=== PATIENT | male | born 1985 | race Two or more races ===

== ENCOUNTER 2023-11-19 15:25 | Emergency (ER) | payer SELFPAY ==
[~2023-11-19] VITALS: Ht 177.8 cm; Wt 91.0 kg
[~2023-11-19 15:25] MED LIST: CARI350T27
[2023-11-19 15:58] VITALS: BP 120/89; PULSE 112; RESP 16; O2SAT 98
[2023-11-19] MEDS ORDERED: IBUPROFEN 800 MG TAB PO ONE (16:15)
[2023-11-19] MEDS ORDERED: LIDOCAINE 1% HCL (LOCAL ANESTH.) INJ 20ML MDV IJ ONE (16:15)
[2023-11-19] MEDS ORDERED: cefTRIAXone SOD 1,000 MG VL IM ONE (16:15)
[2023-11-19 16:16] VITALS: TEMP 99.9
[2023-11-19] MEDS ORDERED: IBUP-1456 PO (16:19)
[2023-11-19] MEDS ORDERED: CLIN300C70 PO (16:19)
== END 2023-11-19 16:33 | disposition home or self-care (01) ==
LOC: ER 15:25
DX: K04.7 Periapical abscess without sinus (principal); Z79.899 Other long term (current) drug therapy
CPT/HCPCS: 96372; 99283; J0696; J2001

== ENCOUNTER 2025-07-01 14:39 | Emergency (ER) | payer MEDICAID, OTHER ==
[~2025-07-01] VITALS: Ht 177.8 cm; Wt 89.0 kg
[~2025-07-01 14:39] MED LIST changes: +CARI-578; -CARI350T27; +CLIN1CAP70 PO; +IBUP-1456 PO
[2025-07-01] MEDS ORDERED: CLIN1CAP70 PO (15:59)
--- NOTE | 2025-07-01 16:01 | ED.PDOC ---
History of Present Illness HPI Comments 39M presents to the ER w/ prior SHx of right hand Sx and the c/c of tooth pain. Pt reports on trying to go to the dentist for his tooth but was declined service due from the pt's tooth being infected and needs antibiotics for the tooth before it is removed. The tooth that is in pain is the on the right side of the mouth. Denies chills, fever, N/V/D, SOB, CP. Denies any other associated symptom's, modifiers, or recent injuries or sick contact at this time. Chief Complaint: Tooth Pain Time Seen by MD: 16:00 Primary Care Provider: DENIES Reviewed Notes: Nurses Notes, Medications, Allergies Allergies: Coded Allergies: NO KNOWN ALLERGIES (Unverified , 05/11/12) Home Meds Active Scripts Clindamycin Hcl (Clindamycin Hcl) 300 Mg Cap, 300 MG PO QID, #32 CAP Prov:CARLTON BURGOS MD 07/01/25 Ibuprofen (Ibuprofen) 800 Mg Tab, 1 TAB PO TID, #30 TAB Prov:AMADA GONZALEZ 11/19/23 Reported Medications Carisoprodol (Carisoprodol) 350 Mg Tab, #90 10/13/13 Information Source: Patient Mode of Arrival: Ambulatory Severity: Moderate Timing: Came on: Gradually Duration: Since onset Prehospital treatment: None Past Medical History PAST MEDICAL HISTORY: Denies Surgical History (Other): right hand Sx Family History Family History: Reviewed,noncontributory to illness, Unknown Social History Smoker: Non-Smoker Alcohol: Denies ETOH Use Drugs: Denies Drug Use Lives In: Home Constitutional: denies: chills, diaphoresis, fatigue, fever, malaise, sweats, weakness, others EENTM: reports: mouth pain, mouth swelling; denies: blurred vision, double vision, ear bleeding, ear discharge, ear drainage, ear pain, ear ringing, eye pain, eye redness, hearing loss, nasal discharge, nose bleeding, nose congestion, nose pain, photophobia, tearing, throat pain, throat swelling, voice changes, others Respiratory: denies: cough, hemoptysis, orthopnea, SOB at rest, shortness of breath, SOB with excertion, stridor, wheezing, others Cardiovascular: denies: chest pain, dizzy spells, diaphoresis, Dyspnea on exertion, edema, irregular heart beat, left arm pain, lightheadedness, palpitations, PND, syncope, others Gastrointestinal: denies: abdomen distended, abdominal pain, blood streaked bowels, constipated, diarrhea, dysphagia, difficulty swallowing, hematemesis, melena, nausea, poor appetite, poor fluid intake, rectal bleeding, rectal pain, vomiting, others Genitourinary: denies: burning, dysuria, flank pain, frequency, hematuria, incontinence, penile discharge, penile sore, pain, testicle pain, testicle swelling, urgency, others Neurological: denies: dizziness, fainting, headache, left sided numbness, left sided weakness, numbness, paresthesia, pre-existing deficit, right sided numbn ess, right sided weakness, seizure, speech problems, tingling, tremors, weakness, others Musculoskeletal: denies: back pain, gout, joint pain, joint swelling, muscle pain, muscle stiffness, neck pain, others Integumetry: denies: bruises, change in color, change in hair/nails, dryness, laceration, lesions, lumps, rash, wounds, others Allergic/Immunocompromised: denies: Difficulty Healing, Frequent Infections, Hives, Itching, others Hematologic/Lymphatic: denies: anemia, blood clots, easy bleeding, easy bruising, swollen glands, others Endocrine: denies: excessive hunger, excessive sweating, excessive thirst, excessive urination, flushing, intolerance to cold, intolerance to heat, unexplained weight gain, unexplained weight loss, others Psychiatric: denies: anxiety, bipolar disorder, depression, hopeless, panic disorder, schizophrenia, sleepless, suicidal, others All Other Systems: Reviewed and Negative Physical Exam General Appearance: No Apparent Distress HEENT: Pharynx Normal, TMs Normal, Other (Dental caries to the right) Neck: Full Range of Motion, Non-Tender, Normal, Normal Inspection Respiratory: Chest Non-Tender, Lungs Clear, No Accessory Muscle Use, No Respiratory Distress, Normal Breath Sounds Cardiovascular: No Edema, No JVD, No Murmur, No Gallop, Normal Peripheral Pulses, Regular Rate/Rhythm Breast Exam: Deferred Gastrointestinal: No Organomegaly, Non Tender, No Pulsatile Mass, Normal Bowel Sounds, Soft Genitalia: Deferred Pelvic: Deferred Rectal: Deferred Extremities: No calf tenderness, Normal capillary refill, Normal inspection, Normal range of motion, Non-tender, No pedal edema Musculoskeletal : Apperance: Normal 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 Was a procedure done?: No Differential Dx Considerations may include: Dental caries, abscess, generalized weakness X-Ray, Labs, Meds, VS Vital Signs Date Time Temp Pulse Resp B/P (MAP) Pulse Ox O2 Delivery O2 Flow Rate FiO2 07/01/25 14:40 98.5 80 15 124/78 99 98.5 At this time, the patient will be discharged with a prescription of clindamycin The patient will return to the emergency department's condition worsens The patient is encouraged to find himself a dentist Images Reviewed?: Images reviewed and evaluated by me Time of 1ST Reevaluation: 16:30 Reevaluation 1ST: Unchanged Patient Education/Counseling: Diagnosis, Treatment, Prognosis, Need For Follow Up Family Education/Counseling: No Family Present SEPSIS Sepsis Screen Date sepsis recognized/suspect: Jul 01, 2025 Time Sepsis recognized/suspect: 1443 Recent Procedure: No On Antibiotic Therapy: No Respiratory Rate >20: No Heart Rate >90: No Temp<36 C (96.8 F) or >38.3 C: No SBP <90 or MAP <65 mmHG: No New Acute Mental Status Change: No Is the patient on CPAP, BIPAP,: No Vital Signs Date Time Temp Pulse Resp B/P (MAP) Pulse Ox O2 Delivery O2 Flow Rate FiO2 07/01/25 14:40 98.5 80 15 124/78 99 98.5 Departure 1 Departure Time of Disposition: 16:54 Impression: Primary Impression: Dental infection Disposition: 01 HOME / SELF CARE / HOMELESS Condition: Fair e-Prescriptions Clindamycin Hcl (Clindamycin Hcl) 300 Mg Cap 300 MG PO QID, #32 CAP Prov: CARLTON BURGOS MD 07/01/25 Discharged With: Self Critical Care Note Critical Care Time?: No Stability Stability form required: No Heart Score Heart Score: Heart Score Response (Comments) Value History N/A 0 EKG N/A 0 Age N/A 0 Risk Factors N/A 0 Troponin N/A 0 Total 0 I personally scribed for CARLTON BURGOS MD ([email or web address]) on 07/01/25 at 16:01. Electronically submitted by Adalid Mabry ([email or web address]). CARLTON BURGOS MD Jul 01, 2025 16:01
[2025-07-01 17:12] VITALS: BP 122/74; PULSE 82; RESP 16; TEMP 98.2; O2SAT 97
== END 2025-07-01 17:14 | disposition home or self-care (01) ==
LOC: ER 14:39
DX: K04.7 Periapical abscess without sinus (principal); Z98.890 Other specified postprocedural states